=== PATIENT | female | born 1965 | race Caucasian/White ===

== ENCOUNTER 2024-03-10 12:01 | Outpatient (CLI) | payer OTHER, SELFPAY ==
--- NOTE | ~2024-03-10 | XR_ITS ---
[id number] Ordering provider: Ann-Marie Nichols, DEREK History: . fall 2 days ago mid to lateral lower rib pain . Comparison: None. FINDINGS: BONES: No acute right rib fracture or fracture of the visualized osseous structures. LUNGS: No effusions or infiltrates. No pneumothorax. SOFT TISSUES: Normal. IMPRESSION: No right rib fracture . Reviewed, dictated and finalized at location A. IMPRESSION: No right rib fracture .
== END 2024-03-10 12:02 ==
LOC: GOSHIMG 12:06
PROVIDERS: PCP Physician Assistant; Visit Provider Physician Assistant
DX: R07.81 Pleurodynia (principal); S20.20XA Contusion of thorax, unspecified, initial encounter; W19.XXXA Unspecified fall, initial encounter
CPT/HCPCS: 71101

== ENCOUNTER 2025-04-22 14:32 | Outpatient (CLI) | payer BC, SELFPAY ==
--- NOTE | ~2025-04-22 | XR_ITS ---
XR_[id number]_CR Indication: low back pain x 1 week, injured while caregiving Comparison: None Findings: The vertebral heights are intact. No fracture or subluxation. The disc heights are intact. Soft tissues unremarkable Impression: No acute abnormality. Reviewed, dictated and finalized at location A. Impression: No acute abnormality.
--- NOTE | ~2025-04-22 | XR_ITS ---
XR lumbar spine 2-3V Indication: low back pain, x 1 week, injured while caregiving Comparison: None Findings: The vertebral heights are intact. No fracture or subluxation. The disc heights are intact. Soft tissues unremarkable Impression: No acute abnormality. Reviewed, dictated and finalized at location A. Impression: No acute abnormality.
== END 2025-04-22 14:33 | disposition home or self-care (01) ==
PROVIDERS: PCP Physician Assistant; Visit Provider Physician Assistant
DX: M54.50 Low back pain, unspecified (principal); M54.12 Radiculopathy, cervical region
CPT/HCPCS: 72040; 72100